=== PATIENT | female | born 1940 | race Two or more races ===

== ENCOUNTER 2018-01-07 09:29 | Outpatient (CLI) | payer OTHER | END 2018-01-07 12:09 | disposition home or self-care (01) | LOC: SONOGRAMA 09:29 | DX: E04.1 Nontoxic single thyroid nodule (principal) ==

== ENCOUNTER 2020-05-31 12:03 | Outpatient (CLI) | payer OTHER | END 2020-05-31 12:47 | disposition home or self-care (01) | LOC: SONOGRAMA 12:03 | PROVIDERS: ATTEND Pathology Anatomic Pathology & Clinical Pathology | DX: D34 Benign neoplasm of thyroid gland (principal); E04.2 Nontoxic multinodular goiter; E07.89 Other specified disorders of thyroid ==